=== PATIENT | male | born 1960 | race Caucasian/White ===

== ENCOUNTER 2018-09-07 07:47 | Day surgery (SDC) | payer BC, OTHER ==
[2018-09-07] MEDS ORDERED: LABETALOL HCL 20MG INJ IV (12:30)
[2018-09-07] MEDS ORDERED: METOCLOPRAMIDE 10 MG INJ IV (12:30)
[2018-09-07] MEDS ORDERED: EPHEDrine SULFATE 50 MG/5 ML SYG IV (12:30)
[2018-09-07] MEDS ORDERED: ONDANSETRON 4 MG INJ IV (12:30)
[2018-09-07] MEDS ORDERED: FENTAnyl 50 MCG/ML VIAL IV ×2 (12:30)
[2018-09-07] MEDS ORDERED: HYDROmorphONE 1 MG/5 ML IV SYRINGE IV ×2 (12:30)
[2018-09-07] MEDS ORDERED: hydrALAzine 20 MG INJ IV (12:30)
== END 2018-09-07 16:11 | disposition home or self-care (01) ==
LOC: GIL 07:47
DX: Z12.11 Encounter for screening for malignant neoplasm of colon (principal); D12.2 Benign neoplasm of ascending colon
CPT/HCPCS: 45380; 88305